=== PATIENT | male | born 1960 | race Caucasian/White ===

== ENCOUNTER 2017-09-19 11:32 | Emergency (ER) | payer OTHER ==
[~2017-09-19] VITALS: Ht 172.7 cm; Wt 92.9 kg
[2017-09-19 11:48] VITALS: TEMP 36.9; Ht 172.7 cm; Wt 92.9 kg
[2017-09-19] MEDS ORDERED: CITA20TA4 PO (12:16)
[2017-09-19] MEDS ORDERED: LISI-461 PO (12:16)
[2017-09-19] MEDS ORDERED: OMEP20TA PO (12:16)
[2017-09-19] MEDS ORDERED: FAMOTIDINE 20 MG TAB PO STA (12:47)
[2017-09-19] MEDS ORDERED: SUCRALFATE 1 GM TAB PO STA (12:47)
[2017-09-19] MEDS ORDERED: GI COCKTAIL PO STA (12:47)
--- NOTE | 2017-09-19 12:52 | EMERGENCY ROOM VISIT NOTE ---
History Report prepared by Dayo: Can Howard Under the Supervision of: Dr. Roney Tellez M.D. First contact with patient: 12:40 Chief Complaint: HYPERTENSION Stated Complaint: BLOOD PRESSURE REFERRED BY DOCTORE History of Present Illness The patient is a 57 year old male who presents to the Emergency Room with complaints of intermittent nausea and dizziness beginning two months. The patient states he was evaluated by his PCP for hypertension, chest pain, abdominal pain, and dizziness. He reports he has a history of a hiatal hernia, and eating intensifies his symptoms. The patient notes he takes Lisinopril, and he has not missed a dose. He states he has never had a colonoscopy. He denies current chest and abdominal pain. Source of History: patient Onset: 2 months Position: other (global) Quality: other (nausea and dizziness) Timing: intermittent Modifying Factors (Worsening): eating Associated Symptoms: No chest pain, No abdominal pain Review of Systems See HPI for pertinent positives & negatives. A total of 10 systems reviewed and were otherwise negative. Past Medical & Surgical Medical Problems: (1) Hiatal hernia (2) HTN (hypertension) Family History Cancer Diabetes mellitus Heart disease Hypertension Social History Smoking Status: Former Smoker Smokeless Tobacco Use: Yes Alcohol Use: occasionally Marital Status: in relationship Housing Status: lives with significant other Occupation Status: employed Current/Historical Medications Scheduled Citalopram Hydrobromide (Citalopram Hydrobromide), 20 MG PO DAILY Lisinopril (Lisinopril), 10 MG PO DAILY Omeprazole (Omeprazole), 20 MG PO DAILY Allergies Coded Allergies: No Known Allergies (Unverified , 09/19/17) Physical Exam Vital Signs Date Time Temp Pulse Resp B/P (MAP) Pulse Ox O2 Delivery O2 Flow Rate FiO2 09/19/17 15:54 66 16 142/80 95 09/19/17 15:08 97 Room Air 09/19/17 15:07 75 20 158/92 97 Room Air 09/19/17 12:49 72 09/19/17 12:43 99 Room Air 09/19/17 11:48 36.9 77 18 142/98 97 Room Air Physical Exam GENERAL: Patient is a healthy-appearing well-nourished 57 year old male. HEAD: Normocephalic atraumatic EYES: Ocular movements intact pupils equal and react to light OROPHARYNX mucous membranes are moist no exudates present no erythema or edema present NECK: Supple no nuchal rigidity CHEST: Good equal expansion LUNGS: Clear and equal to auscultation CARDIAC: Normal S1 and S2 ABDOMEN: Soft nontender no guarding BACK: No CVA tenderness EXTREMITIES: No pain upon palpation normal muscle strength in all groups no clubbing cyanosis or edema NEURO: Patient is following commands and answering questions appropriately. Alert and oriented x3 Cranial Nerves 2-12 grossly intact Medical Decision & Procedures ER Provider Diagnostic Interpretation: CT ABD/PELVIS IV CONTRAST ONLY CLINICAL HISTORY: Epigastric pain. Hypertension. COMPARISON STUDY: None. TECHNIQUE: Following the IV administration of 93 mL of Optiray-320, CT scan of the abdomen and pelvis was performed from the lung bases to the proximal femurs. Images are reviewed in the axial, sagittal, and coronal planes. IV contrast was administered without complication. A dose lowering technique was utilized adhering to the principles of ALARA. CT DOSE: 749.44 mGy.cm FINDINGS: Lower chest: There are mild dependent atelectatic changes. Liver: There is mild hepatic steatosis. No focal masses are visualized. There is no ductal dilatation. The portal vein is patent. Gallbladder: Unremarkable. Spleen: Normal in size and attenuation. Pancreas: No pancreatic masses are visualized. There is pancreatic tail edema with peripancreatic infiltration. The findings are indicative of acute pancreatitis. Adrenal glands: Unremarkable. Kidneys: There is no hydronephrosis. There is a 6 mm left renal hypodensity likely representing a cyst. Bowel: There are no transition zone to indicate bowel obstruction. There is no evidence of acute diverticulitis. The appendix appears normal. Mildly thickened left upper quadrant small bowel loops, are likely secondary to adjacent pancreatitis. Peritoneum: There is a small amount of free pelvic fluid, as well as a small amount of fluid within the mesentery. This is likely reactive secondary to the patient's pancreatitis. No free air is visualized. There are small fat-containing inguinal hernias. Vasculature: The abdominal aorta is normal in course and caliber. Adenopathy: None. Pelvic viscera: The bladder, and pelvic viscera are unremarkable. Skeletal structures: No destructive osseous lesions are seen. IMPRESSION: 1. Acute pancreatitis as evidenced by pancreatic tail edema and infiltration of the peripancreatic fat 2. No evidence of bowel obstruction. No evidence of free air Electronically signed by: Bari Cooper M.D. 09/19/2017 3:07 PM Dictated Date/Time: 09/19/2017 3:02 PM SINGLE VIEW CHEST CLINICAL HISTORY: Hypertension. FINDINGS: An AP, portable, upright chest radiograph is obtained. No prior studies are available for comparison at the time of dictation. The examination is degraded by portable technique and patient rotation. The heart is top normal for projection. The mediastinal contour is within normal limits. There is minimal left basilar atelectasis. The lungs and pleural spaces are otherwise clear. No pneumothorax is seen. Chronic posttraumatic deformity is seen in the left clavicle. IMPRESSION: No acute cardiopulmonary abnormality. Electronically signed by: Yves Tamayo M.D. 09/19/2017 1:18 PM Dictated Date/Time: 09/19/2017 1:17 PM Laboratory Results 09/19/17 13:36 Red Blood Count 4.68, Mean Corpuscular Volume 91.7, Mean Corpuscular Hemoglobin 32.3, Mean Corpuscular Hemoglobin Concent 35.2, Mean Platelet Volume 11.6, Neutrophils (%) (Auto) 71.4, Lymphocytes (%) (Auto) 18.4, Monocytes (%) (Auto) 6.8, Eosinophils (%) (Auto) 2.4, Basophils (%) (Auto) 0.2, Neutrophils # (Auto) 6.31, Lymphocytes # (Auto) 1.63, Monocytes # (Auto) 0.60, Eosinophils # (Auto) 0.21, Basophils # (Auto) 0.02 09/19/17 13:36 Test 09/19/17 13:36 09/19/17 13:48 09/19/17 15:10 White Blood Count 8.84 K/uL (4.8-10.8) Red Blood Count 4.68 M/uL (4.7-6.1) Hemoglobin 15.1 g/dL (14.0-18.0) Hematocrit 42.9 % (42-52) Mean Corpuscular Volume 91.7 fL (80-100) Mean Corpuscular Hemoglobin 32.3 pg (25-34) Mean Corpuscular Hemoglobin Concent 35.2 g/dl (32-36) Platelet Count 215 K/uL (130-400) Mean Platelet Volume 11.6 fL (7.4-10.4) Neutrophils (%) (Auto) 71.4 % Lymphocytes (%) (Auto) 18.4 % Monocytes (%) (Auto) 6.8 % Eosinophils (%) (Auto) 2.4 % Basophils (%) (Auto) 0.2 % Neutrophils # (Auto) 6.31 K/uL (1.4-6.5) Lymphocytes # (Auto) 1.63 K/uL (1.2-3.4) Monocytes # (Auto) 0.60 K/uL (0.11-0.59) Eosinophils # (Auto) 0.21 K/uL (0-0.5) Basophils # (Auto) 0.02 K/uL (0-0.2) RDW Standard Deviation 43.8 fL (36.4-46.3) RDW Coefficient of Variation 13.1 % (11.5-14.5) Immature Granulocyte % (Auto) 0.8 % Immature Granulocyte # (Auto) 0.07 K/uL (0.00-0.02) Prothrombin Time 10.5 SECONDS (9.0-12.0) Prothromb Time International Ratio 1.0 (0.9-1.1) Activated Partial Thromboplast Time 29.6 SECONDS (21.0-31.0) Partial Thromboplastin Ratio 1.1 Est Creatinine Clear Calc Drug Dose 86.2 ml/min Estimated GFR () 92.8 Estimated GFR (Non- 80.1 BUN/Creatinine Ratio 15.9 (10-20) Calcium Level 9.1 mg/dl (8.5-10.1) Total Bilirubin 0.9 mg/dl (0.2-1) Direct Bilirubin 0.2 mg/dl (0-0.2) Aspartate Amino Transf (AST/SGOT) 15 U/L (15-37) Alanine Aminotransferase (ALT/SGPT) 28 U/L (12-78) Alkaline Phosphatase 81 U/L (45-117) Total Protein 7.4 gm/dl (6.4-8.2) Albumin 3.3 gm/dl (3.4-5.0) Lipase 269 U/L (73-393) Thyroid Stimulating Hormone (TSH) 1.250 uIu/ml (0.300-4.500) Bedside Hemoglobin 15.0 g/dl (14.0-18.0) Bedside Hematocrit 44 % (42-52) Bedside Sodium 140 mEq/L (135-144) Bedside Potassium 4.0 mEq/L (3.3-5.0) Bedside Chloride 104 mEq/L (101-112) Bedside Total CO2 26 mEq/l (24-31) Anion Gap 15.0 mmol/L (16-25) Bedside Blood Urea Nitrogen 16 mg/dl (7-18) Bedside Creatinine 1.0 mg/dl (0.6-1.3) Bedside Glucose (other) 116 mg/dl (70-99) Bedside Ionized Calcium (Holger) 1.17 mmol/l (1.12-1.32) Urine Color YELLOW Urine Appearance CLEAR (CLEAR) Urine pH 5.0 (4.5-7.5) Urine Specific [place] 1.020 (1.000-1.030) Urine Protein TRACE (NEG) Urine Glucose (UA) TRACE (NEG) Urine Ketones NEG (NEG) Urine Occult Blood NEG (NEG) Urine Nitrite NEG (NEG) Urine Bilirubin NEG (NEG) Urine Urobilinogen NEG (NEG) Urine Leukocyte Esterase NEG (NEG) Urine RBC 0-4 /hpf (0-4) Urine WBC 1-5 /hpf (0-5) Urine Epithelial Cells 5-10 /lpf (0-5) Urine Bacteria 1+ (NEG) Urine Mucus PRESENT (NONE PRSENT) Urine Sperm PRESENT (NONE PRSENT) Labs reviewed by ED physician. Medications Administered Medications (Trade) Dose Ordered Sig/Rika Route Start Time Stop Time Status Last Admin Dose Admin Famotidine (Pepcid Tab) 20 mg NOW STAT PO 09/19/17 12:47 09/19/17 12:50 DC 09/19/17 15:03 20 MG Sucralfate (Carafate Tab) 1 gm NOW STAT PO 09/19/17 12:47 09/19/17 12:50 DC 09/19/17 15:03 1 GM Lidocaine HCl (Viscous Lidocaine 2% Soln) 20 ml STK-MED ONCE .ROUTE 09/19/17 14:56 09/19/17 14:57 DC 09/19/17 15:03 20 ML Al Hydroxide/Mg Hydroxide (Maalox Susp) 30 ml STK-MED ONCE .ROUTE 09/19/17 14:57 09/19/17 14:58 DC 09/19/17 15:03 30 ML ECG Indication: other (hypertension) Rate (beats per minute): 61 Rhythm: normal sinus Findings: no acute ischemic change, no ectopy ED Course 1241: Past medical records reviewed. The patient was evaluated in room C02B. A complete history and physical examination was performed. 1247: Ordered Sucralfate 1gm PO, Famotidine 20mg PO, Gi Cocktail 24ml PO Medical Decision Differential diagnosis: Etiologies such as benign hypertension, hypertensive emergency, cardiovascular pathology, pheochromocytoma, electrolyte abnormality, renal disease, endorgan damage, as well as others were entertained. This is a 57-year-old male who presents emergency department complaining of hypertension. This is a 57-year-old male who presents emergency department complaining of epigastric pain since Friday. The patient reports the pain has gotten much better however he went to his primary care physician's office today and sent him to the emergency department. I will note that the patient's lipase is normal however it appears he has acute pancreatitis on CAT scan. I suspect he has already started improving. He has not required any pain medication in the emergency department. Serial abdominal examinations were performed on the patient in the emergency department in no time did the patient exhibit a surgical abdomen. The patient was given Pepcid GI cocktail Carafate in the emergency department. I do feel he is well enough to be discharged home. Patient was in agreement with the treatment plan. Medication Reconcilliation Current Medication List: was personally reviewed by me Impression Primary Impression: HTN (hypertension) Scribe Attestation The scribe's documentation has been prepared under my direction and personally reviewed by me in its entirety. I confirm that the note above accurately reflects all work, treatment, procedures, and medical decision making performed by me. Departure Information Dispostion Home / Self-Care Referrals No Doctor, Assigned (PCP) Patient Instructions My [facility] Problem Qualifiers Primary Impression: HTN (hypertension) Hypertension type: unspecified Qualified Codes: I10 - Essential (primary) hypertension
[2017-09-19] MEDS ORDERED: OPTIRAY 320 IV PRN (13:00)
--- NOTE | 2017-09-19 13:19 | DIAGNOSTIC IMAGING REPORT ---
SINGLE VIEW CHEST CLINICAL HISTORY: Hypertension. FINDINGS: An AP, portable, upright chest radiograph is obtained. No prior studies are available for comparison at the time of dictation. The examination is degraded by portable technique and patient rotation. The heart is top normal for projection. The mediastinal contour is within normal limits. There is minimal left basilar atelectasis. The lungs and pleural spaces are otherwise clear. No pneumothorax is seen. Chronic posttraumatic deformity is seen in the left clavicle. IMPRESSION: No acute cardiopulmonary abnormality. Electronically signed by: Yves Tamayo M.D. 09/19/2017 1:18 PM Dictated Date/Time: 09/19/2017 1:17 PM
[2017-09-19 13:57] LABS: BASO % 0.2 %; BASO ABS # 0.02 K/uL (0-0.2); COMPLETE YES; EOS % 2.4 %; HEMATOCRIT 42.9 % (42-52); IG% 0.8 %; LYMPH % 18.4 %; LYMPH ABS # 1.63 K/uL (1.2-3.4); MEAN CELL VOLUME 91.7 fL (80-100); MEAN CORPUSCULAR HEMOGLOBIN 32.3 pg (25-34); MEAN CORPUSCULAR HGB CONC 35.2 g/dl (32-36); MEAN PLATELET VOLUME 11.6 fL (7.4-10.4); MONO % 6.8 %; NEUT % 71.4 %; PLATELET COUNT 215 K/uL (130-400); RED BLOOD COUNT 4.68 M/uL (4.7-6.1); WHITE BLOOD COUNT 8.84 K/uL (4.8-10.8)
[2017-09-19 14:03] LABS: ISTAT IONIZED CALCIUM 1.17 mmol/l (1.12-1.32)
[2017-09-19 14:07] LABS: PARTIAL THROMBOPLASTIN RATIO 1.1; PROTHROMBIN TIME (PATIENT) 10.5 SECONDS (9.0-12.0)
[2017-09-19 14:14] LABS: BUN/CREATININE RATIO 15.9 (10-20); CALCIUM 9.1 mg/dl (8.5-10.1); CREATININE 1.02 mg/dl (0.60-1.40); POTASSIUM 3.9 mmol/L (3.5-5.1)
[2017-09-19 14:25] LABS: THYROID STIMULATING HORMONE 1.25 uIu/ml (0.300-4.500)
[2017-09-19] MEDS ORDERED: FAMOTIDINE 20 MG TAB ONE (14:56)
[2017-09-19] MEDS ORDERED: LIDOCAINE HCL 2% VISC SOLN 20 ML UDC ONE (14:56)
[2017-09-19] MEDS ORDERED: ALUMINUM/MAGNESIUM SUSP 30 ML UDC ONE (14:57)
[2017-09-19] MEDS ORDERED: SUCRALFATE 1 GM TAB ONE (14:57)
[2017-09-19 15:08] VITALS: O2SAT 97
--- NOTE | 2017-09-19 15:08 | DIAGNOSTIC IMAGING REPORT ---
CT ABD/PELVIS IV CONTRAST ONLY CLINICAL HISTORY: Epigastric pain. Hypertension. COMPARISON STUDY: None. TECHNIQUE: Following the IV administration of 93 mL of Optiray-320, CT scan of the abdomen and pelvis was performed from the lung bases to the proximal femurs. Images are reviewed in the axial, sagittal, and coronal planes. IV contrast was administered without complication. A dose lowering technique was utilized adhering to the principles of ALARA. CT DOSE: 749.44 mGy.cm FINDINGS: Lower chest: There are mild dependent atelectatic changes. Liver: There is mild hepatic steatosis. No focal masses are visualized. There is no ductal dilatation. The portal vein is patent. Gallbladder: Unremarkable. Spleen: Normal in size and attenuation. Pancreas: No pancreatic masses are visualized. There is pancreatic tail edema with peripancreatic infiltration. The findings are indicative of acute pancreatitis. Adrenal glands: Unremarkable. Kidneys: There is no hydronephrosis. There is a 6 mm left renal hypodensity likely representing a cyst. Bowel: There are no transition zone to indicate bowel obstruction. There is no evidence of acute diverticulitis. The appendix appears normal. Mildly thickened left upper quadrant small bowel loops, are likely secondary to adjacent pancreatitis. Peritoneum: There is a small amount of free pelvic fluid, as well as a small amount of fluid within the mesentery. This is likely reactive secondary to the patient's pancreatitis. No free air is visualized. There are small fat-containing inguinal hernias. Vasculature: The abdominal aorta is normal in course and caliber. Adenopathy: None. Pelvic viscera: The bladder, and pelvic viscera are unremarkable. Skeletal structures: No destructive osseous lesions are seen. IMPRESSION: 1. Acute pancreatitis as evidenced by pancreatic tail edema and infiltration of the peripancreatic fat 2. No evidence of bowel obstruction. No evidence of free air Electronically signed by: Bari Cooper M.D. 09/19/2017 3:07 PM Dictated Date/Time: 09/19/2017 3:02 PM
[2017-09-19 15:33] LABS: MANUAL MICROSCOPIC REQUIRED? YES; URINE APPEARANCE CLEAR (CLEAR); URINE BILIRUBIN NEG (NEG); URINE COLOR YELLOW; URINE NITRITE NEG (NEG); UROBILINOGEN NEG (NEG)
[2017-09-19 15:39] LABS: REVIEW REQ? NO
[2017-09-19 15:54] VITALS: BP 142/80; PULSE 66; O2SAT 95
[2017-09-19 15:57] LABS: URINE MUCUS PRESENT (NONE PRSENT)
[2017-09-19 15:59] LABS: URINE BACTERIA 1+ (NEG); URINE RBC 0-4 /hpf (0-4); URINE SPERM PRESENT (NONE PRSENT)
== END 2017-09-19 16:05 | disposition home or self-care (01) ==
LOC: C.EDB 11:35 → C.EDC 16:05
DX: I10 Essential (primary) hypertension (principal); R11.0 Nausea; R42 Dizziness and giddiness; Z87.738 Personal history of other specified (corrected) congenital malformations of digestive system; Z79.899 Other long term (current) drug therapy; Z87.891 Personal history of nicotine dependence; Z82.49 Family history of ischemic heart disease and other diseases of the circulatory system; Z83.3 Family history of diabetes mellitus